=== PATIENT | male | born 1985 | race Asian ===

== ENCOUNTER 2019-03-22 20:04 | Emergency (ER) | payer MEDICAID ==
[~2019-03-22] VITALS: Ht 185.4 cm; Wt 190.5 kg
[2019-03-22 20:16] VITALS: Ht 185.4 cm; Wt 190.5 kg
[2019-03-22 20:38] LABS: BASOPHIL % 0.6 % (0-2); PLATELET COUNT 172 x10^3mcL (130-400); RED CELL DISTRIBUTION WIDTH 13.2 % (11.5-14.5)
[2019-03-22 21:12] LABS: ALKALINE PHOSPHATASE 107 U/L (46-116); ALT/SGPT 56 U/L (16-63); AST/SGOT 31 U/L (15-37); BILIRUBIN TOTAL 0.3 mg/dL (0.20-1.00); CALCIUM 8.8 mg/dL (8.5-10.1); CARBON DIOXIDE 29.4 mmol/L (21-32); CHLORIDE SERUM 101 mmol/L (98-107); CREATININE SERUM 1.2 mg/dL (0.7-1.3); GFR1 > 60 mL/min; GLUCOSE SERUM 431 mg/dL (74-106); POTASSIUM SERUM 3.9 mmol/L (3.5-5.1); SODIUM SERUM 138 mmol/L (136-145); TOTAL PROTEIN, SERUM 7.8 g/dL (6.4-8.2)
[2019-03-22 21:15] LABS: ALBUMIN 3.2 g/dL (3.4-5.0)
[2019-03-22 22:37] VITALS: BP 125/65
== END 2019-03-22 22:57 | disposition home or self-care (01) ==
LOC: ED 20:04
DX: G47.30 Sleep apnea, unspecified (principal); R07.89 Other chest pain; E11.9 Type 2 diabetes mellitus without complications; E66.01 Morbid (severe) obesity due to excess calories; Z68.45 Body mass index [BMI] 70 or greater, adult
CPT/HCPCS: 36415; 83880; 87804